=== PATIENT | female | born 1950 | race Caucasian/White ===

== ENCOUNTER 2016-12-16 11:30 | Emergency (ER) | payer OTHER, MEDICARE ==
--- NOTE | 2016-12-16 11:55 | EDPHY ---
H & P Stated Complaint: right facial swelling for 5 days Time Seen by Provider: 12/16/16 11:51 HPI/ROS: CHIEF COMPLAINT: Facial swelling HISTORY OF PRESENT ILLNESS: The patient is a 66-year-old female who comes to the emergency department complaining of swelling in her right lower jaw. Last week she had a complicated root canal in her right upper jaw. She had swelling and pain at that time which is decreased. She is currently on amoxicillin. Last 2 days however she has had new swelling in her right lower cheek. She has not had a fever. She has mild pain. No erythema. No headache. REVIEW OF SYSTEMS: Constitutional: denies: chills, fever, recent illness, recent injury EENTM: See HPI Respiratory: denies: cough, shortness of breath Cardiac: denies: chest pain, irregular heart rate, lightheadedness, palpitations Gastrointestinal/Abdominal: denies: abdominal pain, diarrhea, nausea, vomiting, blood streaked stools Genitourinary: denies: dysuria, frequency, hematuria, pain Musculoskeletal: denies: joint pain, muscle pain Skin: denies: lesions, rash, jaundice, bruising Neurological: denies: headache, numbness, paresthesia, tingling, dizziness, weakness Hematologic/Lymphatic: denies: blood clots, easy bleeding, easy bruising Immunologic/allergic: denies: HIV/AIDS, transplant EXAM: GENERAL: Well-appearing, well-nourished and in no acute distress. HEAD: Atraumatic, normocephalic. EYES: Pupils equal round and reactive to light, extraocular movements intact, sclera anicteric, conjunctiva are normal. ENT: Mild swelling right anterior lower jaw. Anterior to parotid gland and duct. No obvious intraoral swelling or erythema. Nontender, not fluctuant. No warmth. TMs normal, nares patent, oropharynx clear without exudates. Moist mucous membranes. NECK: Normal range of motion, supple without lymphadenopathy or JVD. LUNGS: Breath sounds clear to auscultation bilaterally and equal. No wheezes rales or rhonchi. HEART: Regular rate and rhythm without murmurs, rubs or gallops. ABDOMEN: Soft, nontender, normoactive bowel sounds. No guarding, no rebound. No masses appreciated. BACK: No CVA tenderness, no spinal tenderness, step-offs or deformities EXTREMITIES: Normal range of motion, no pitting or edema. No clubbing or cyanosis. NEUROLOGICAL: Cranial nerves II through XII grossly intact. Normal speech, normal gait. 5/5 strength, normal movement in all extremities, normal sensation PSYCH: Normal mood, normal affect. SKIN: Warm, dry, normal turgor, no visible rashes or lesions. 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 IN [place] FOR 5 DAYS WITH PNEUMNIA, SEPSIS AND PLEURISY. hyperlipidemia, hypothyroid, OCD - Family History Significant Family History: No pertinent family hx - Social History Smoking Status: Never smoked Alcohol Use: Sober Drug Use: None Constitutional: Initial Vital Signs Temperature (C) 36.5 C 12/16/16 11:47 Heart Rate 75 12/16/16 11:47 Respiratory Rate 20 12/16/16 11:47 Blood Pressure 158/93 H 12/16/16 11:47 O2 Sat (%) 92 12/16/16 11:47 O2 Delivery Mode Room Air Allergies/Adverse Reactions: clarithromycin [From Biaxin] Allergy (Verified 12/16/16 11:41) levofloxacin [From Levaquin] Allergy (Verified 12/16/16 11:41) sulfamethoxazole [From Bactrim] Allergy (Verified 12/16/16 11:41) trimethoprim [From Bactrim] Allergy (Verified 12/16/16 11:41) Home Medications: Medication Instructions Recorded Coumadin 2.5MG (RX) 08/27/13 Paxil 08/27/13 Synthroid 08/27/13 AMOXICILLIN 12/16/16 Crestor 12/16/16 Medical Decision Making - Diagnostics Imaging Results: Imaging Impressions Face CT 12/16/16 11:51 Impression: 1. No evidence of abscess with attention around the right submandibular gland. Findings discussed with Veto Melendrez M.D. at 14:32 hour, 12/16/2016. Imaging: Discussed imaging studies w/ scallop cutter Radiologist ED Course/Re-evaluation: We discussed the CT and lab results. The patient is reassured. Overall I suspect that some of the edema that had previously been present in her upper face has now gravitated towards her jowell. It is nontender and does not appear to be infected. Does not appear to be associated with the teeth or salivary glands. She is advised her to continue taking antibiotics, use ice and attempt to elevate the region. She agrees with this plan and will follow up with her dentist. Differential Diagnosis: Partial list of the Differential diagnosis considered include but were not limited to; edema, cellulitis, abscess, salivary gland infection or stone and although unlikely based on the history and physical exam, I also considered fracture, tumor. I discussed these differential diagnoses and the plan with the patient as well as the usual and expected course. The patient understands that the diagnosis is provisional and that in medicine we are not always correct and that further workup is often warranted. Usual and customary warnings were given. All of the patient's questions were answered. The patient was instructed to return to the emergency department should the symptoms at all worsen or return, otherwise to followup with the physician as we discussed. - Data Points Laboratory Results: Laboratory Results 12/16/16 12:25 12/16/16 12:25 12/16/16 12/16/16 12:25 12:25 WBC 5.37 10^3/uL 10^3/uL (3.80-9.50) RBC 4.39 10^6/uL 10^6/uL (4.18-5.33) Hgb 11.8 g/dL L g/dL (12.6-16.3) Hct 36.0 % L % (38.0-47.0) MCV 82.0 fL fL (81.5-99.8) MCH 26.9 pg L pg (27.9-34.1) MCHC 32.8 g/dL g/dL (32.4-36.7) RDW 14.1 % % (11.5-15.2) Plt Count 333 10^3/uL 10^3/uL (150-400) MPV 9.1 fL fL (8.7-11.7) Neut % (Auto) 60.5 % % (39.3-74.2) Lymph % (Auto) 28.3 % % (15.0-45.0) [place] % (Auto) 5.8 % % (4.5-13.0) Eos % (Auto) 4.1 % % (0.6-7.6) Baso % (Auto) 0.9 % % (0.3-1.7) Nucleat RBC Rel Count 0.0 % % (0.0-0.2) Absolute Neuts (auto) 3.25 10^3/uL 10^3/uL (1.70-6.50) Absolute Lymphs (auto) 1.52 10^3/uL 10^3/uL (1.00-3.00) Absolute Monos (auto) 0.31 10^3/uL 10^3/uL (0.30-0.80) Absolute Eos (auto) 0.22 10^3/uL 10^3/uL (0.03-0.40) Absolute Basos (auto) 0.05 10^3/uL 10^3/uL (0.02-0.10) Absolute Nucleated RBC 0.00 10^3/uL 10^3/uL (0-0.01) Immature Gran % 0.4 % % (0.0-1.1) Immature Gran # 0.02 10^3/uL 10^3/uL (0.00-0.10) Sodium 140 mEq/L mEq/L (134-144) Potassium 4.2 mEq/L mEq/L (3.5-5.2) Chloride 105 mEq/L mEq/L (97-110) Carbon Dioxide 24 mEq/l mEq/l (22-31) Anion Gap 11 mEq/L mEq/L (8-16) BUN 17 mg/dL mg/dL (7-23) Creatinine 0.5 mg/dL L mg/dL (0.6-1.0) Estimated GFR > 60 Glucose 95 mg/dL mg/dL (70-100) Calcium 8.8 mg/dL mg/dL (8.5-10.4) Departure - Departure Disposition: Home, Routine, Self-Care Clinical Impression: Edema Qualifiers: Edema type: localized Qualified Code(s): R60.0 - Localized edema Condition: Fair Instructions: Lymphedema (ED) Referrals: NONE *PRIMARY CARE P,. [Primary Care Provider] - As per Instructions Sunday Brennan MD [Medical Doctor] - As per Instructions
[2016-12-16] MEDS ORDERED: IOPAMIDOL (ISOVUE-300) 100 ML BTL ONE (12:12)
[2016-12-16 12:33] LABS: % IMMATURE GRANULYOCYTES 0.4 % (0.0-1.1); ABSOLUTE IMMATURE GRANULOCYTES 0.02 10^3/uL (0.00-0.10); ADD DIFF? NO; ADD MORPH? NO; ADD SCAN? NO; ATYPICAL LYMPHOCYTE FLAG 20 (0-99); FRAGMENT RBC FLAG 0 (0-99); HEMOGLOBIN 11.8 g/dL (12.6-16.3); LEFT SHIFT FLG 0 (0-99); LIPEMIA HEMOLYSIS FLAG 80 (0-99); MEAN CELL HEMOGLOBIN 26.9 pg (27.9-34.1); MEAN CELL HEMOGLOBIN CONCENTR. 32.8 g/dL (32.4-36.7); MEAN PLATELET VOLUME 9.1 fL (8.7-11.7); PLATELET CLUMPS FLAG 0 (0-99); PLATELET COUNT 333 10^3/uL (150-400); RED BLOOD CELL COUNT 4.39 10^6/uL (4.18-5.33); RED CELL DISTRIBUTION WIDTH 14.1 % (11.5-15.2)
[2016-12-16 13:09] LABS: ANION GAP 11 mEq/L (8-16); CALCIUM 8.8 mg/dL (8.5-10.4); CARBON DIOXIDE 24 mEq/l (22-31); CHLORIDE 105 mEq/L (97-110); CREATININE 0.5 mg/dL (0.6-1.0); GLOMERULAR FILTRATION RATE > 60; GLUCOSE 95 mg/dL (70-100); POTASSIUM 4.2 mEq/L (3.5-5.2); SODIUM 140 mEq/L (134-144)
[2016-12-16 14:41] VITALS: BP 146/78; PULSE 81; RESP 18; TEMP 97.9; O2SAT 95
== END 2016-12-16 14:44 | disposition home or self-care (01) ==
LOC: CED 11:30
DX: R60.0 Localized edema (principal); Z79.01 Long term (current) use of anticoagulants
CPT/HCPCS: 70487; 99285; Q9967; 80048-PO; 85025-PO

== ENCOUNTER → 2018-10-04 | Outpatient (CLI) | payer OTHER | LOC: CIMAGING 10:59 | PROVIDERS: ATTEND Internal Medicine | DX: R06.02 Shortness of breath (principal); M79.89 Other specified soft tissue disorders; M18.9 Osteoarthritis of first carpometacarpal joint, unspecified | CPT/HCPCS: 71046-PO; 73130-PO ==

== ENCOUNTER → 2018-11-14 | Outpatient (CLI) | payer OTHER | LOC: BRMIMAGING 09:50 ==